=== PATIENT | male | born 1950 | race African-American/Black ===

== ENCOUNTER → 2016-12-23 | Outpatient (CLI) | payer MEDICARE, OTHER ==
[2016-12-23 10:16] LABS: BASOPHIL# 0.1 X10e3 (0-0.3); BASOPHIL% 0.5 % (0-2.5); EOSINOPHIL# 0.3 X10e3 (0-0.7); EOSINOPHIL% 2.4 % (0.0-7.0); HEMATOCRIT 37.6 % (38.0-50.0); HEMOGLOBIN 12.1 gm/dL (13.0-16.0); LYMPHOCYTE# 3.9 X10e3 (1.0-3.5); MEAN CORPUSCULAR HEMOGLOBIN 25.8 PG (28-34); MEAN CORPUSCULAR HGB CONC 32.3 g/dL (30-36); MEAN PLATELET VOLUME 9.4 FL (6.5-11.5); MONOCYTE# 0.9 X10e3 (0-1.0); MONOCYTE% 8.7 % (3.0-12.0); NEUTROPHIL# 5.2 X10e3 (1.5-7.1); NEUTROPHIL% 50.4 % (40-75); PLATELET COUNT 244 X10e3 (140-420); RED BLOOD COUNT 4.69 X10e (3.90-5.60); RED CELL DISTRIBUTION WIDTH 15.3 % (11.0-15.5); WHITE BLOOD COUNT 10.3 X10e3 (4.0-10.5)
[2016-12-23 10:18] LABS: DIFF IND NO
[2016-12-23 10:34] LABS: BUN/CREATININE RATIO 15.71; CALCIUM SERUM 9.1 mg/dL (8.4-10.2); CREATININE SERUM 1.4 mg/dL (0.6-1.4); GLOM FILT RATE Estimated 60.3 mL/min (>60); POTASSIUM 3.5 mmol/L (3.5-5.1)
== END | disposition home or self-care (01) ==
LOC: SLAB 09:34
PROVIDERS: Internal Medicine Nephrology
DX: N18.3 Chronic kidney disease, stage 3 (moderate) (principal); E55.9 Vitamin D deficiency, unspecified
CPT/HCPCS: 36415; 80048; 82306; 85025